=== PATIENT | female | born 1940 | race Caucasian/White ===

== ENCOUNTER 2021-04-09 17:21 | Inpatient (IN) | payer MEDICARE, MEDICAID ==
[2021-04-09 19:00] LABS: #Monocytes 0.3 10x3/uL (0.0-1.1); #Neutrophils 2.3 10x3/uL (1.5-8.4); %Basophils 0.3 % (0.0-2.0); %Monocytes 8.5 % (0.0-10.0); %Neutrophils 73.9 % (40.0-75.0); Hemoglobin 10.3 g/dL (12.0-15.5); Mean Corpuscular HGB CONC 31.5 g/dL (32.0-36.0); Mean Corpuscular Hemoglobin 28.1 pg (27.0-33.0); Mean Corpuscular Volume 89.1 fl (81.6-98.3); Mean Platelet Volume 10.4 fl (7.4-10.4); Platelet Count 125 10x3/uL (150-450); RBC Distribution Width 15.8 % (11.5-14.5); Red Blood Cell (RBC) Count 3.67 10x6/uL (3.90-5.03); White Blood Cell (WBC) Count 3.1 10x3/uL (3.5-10.5)
[2021-04-09 19:09] LABS: ALT (SGPT) 7 U/L (8-55); AST (SGOT) 24 U/L (5-34); Albumin 4.2 g/dL (3.4-4.8); Alkaline Phosphatase 49 U/L (40-110); Anion Gap 20 mmol/L (10-20); BUN (Urea Nitrogen) 77 mg/dL (9.8-20.1); Calc. Creatinine Clearance 0 mL/min (70-130); Calcium 8.3 mg/dL (7.8-10.44); Carbon Dioxide 27 mmol/L (23-31); Chloride 95 mmol/L (98-107); Globulin 2.7 g/dL (2.4-3.5); Glucose 85 mg/dL (83-110); Potassium 4.2 mmol/L (3.5-5.1); Protein, Total 6.9 g/dL (5.8-8.1); Sodium 138 mmol/L (136-145)
[2021-04-09] MEDS ORDERED: Ondansetron PF 4 MG/2 ML Vial ONE (20:03)
[2021-04-09 21:23] LABS: SARS-CoV-2 NAA Rapid Test DETECTED (NotDetected)
[2021-04-09 21:25] LABS: CKMB 3.4 ng/mL (0-6.6)
[2021-04-09] MEDS ORDERED: Senokot S 8.6-50 MG TAB PO PRN (22:47)
[2021-04-09] MEDS ORDERED: Ondansetron ODT 4 MG TAB PO PRN (22:47)
[2021-04-09 23:11] LABS: Magnesium 2.1 mg/dL (1.6-2.6)
[2021-04-09 23:29] LABS: Troponin I 0.157 ng/mL (< 0.028)
[2021-04-10 04:42] LABS: #Monocytes 0.3 10x3/uL (0.0-1.1); #Neutrophils 2.3 10x3/uL (1.5-8.4); %Basophils 0.3 % (0.0-2.0); %Lymphocytes 16.6 % (18.0-47.0); %Neutrophils 73.5 % (40.0-75.0); Mean Corpuscular HGB CONC 31.7 g/dL (32.0-36.0); Mean Corpuscular Hemoglobin 28.3 pg (27.0-33.0); Mean Corpuscular Volume 89.2 fl (81.6-98.3); Mean Platelet Volume 10.4 fl (7.4-10.4); Platelet Count 120 10x3/uL (150-450); Red Blood Cell (RBC) Count 3.53 10x6/uL (3.90-5.03); White Blood Cell (WBC) Count 3.1 10x3/uL (3.5-10.5)
[2021-04-10 04:53] LABS: Anion Gap 19 mmol/L (10-20); BUN (Urea Nitrogen) 80 mg/dL (9.8-20.1); Calc. Creatinine Clearance 0 mL/min (70-130); Calcium 7.9 mg/dL (7.8-10.44); Carbon Dioxide 23 mmol/L (23-31); Chloride 97 mmol/L (98-107); Glucose 96 mg/dL (83-110); Potassium 4.1 mmol/L (3.5-5.1); Sodium 135 mmol/L (136-145)
[2021-04-10] MEDS ORDERED: Dexamethasone 4 mg/ml Vial SLOW IVP SCH (05:00)
[2021-04-10] MEDS ORDERED: Dexamethasone 10 MG/ML VIAL ONE (05:14)
[2021-04-10 05:16] LABS: Troponin I 0.166 ng/mL (< 0.028)
[2021-04-10 10:04] VITALS: BMI 32.8
[2021-04-10] MEDS ORDERED: Heparin 10,000 UNITS/ 10 ML VIAL SLOW IVP PRN (10:47)
[2021-04-10] MEDS ORDERED: EPOETIN ALFA-EPBX (ESRD) 3,000 UNIT/ML VIAL IVP PRN (10:50)
[2021-04-10] MEDS ORDERED: Flecainide 50 MG TAB PO SCH (11:00)
[2021-04-10] MEDS ORDERED: Dexamethasone 20 MG/5 ML VIAL ONE (11:07)
[2021-04-10] MEDS ORDERED: Heparin 5,000 UNITS/ML VIAL ONE (11:08)
[2021-04-10] MEDS: Dexamethasone 4 mg/ml Vial SLOW IVP SCH (11:17)
[2021-04-10] MEDS: Heparin 5,000 UNITS/ML VIAL SC SCH ×2 (12:28→23:45)
[2021-04-10 13:20] LABS: Free T4 (Free Thyroxine) Less than 0.40 ng/dL (0.70-1.48)
[2021-04-10] MEDS ORDERED: Levothyroxine Sodium 100 MCG TAB PO SCH (16:30)
[2021-04-10] MEDS: Flecainide 50 MG TAB PO SCH (23:45)
[2021-04-11 05:32] LABS: ALT (SGPT) 9 U/L (8-55); AST (SGOT) 27 U/L (5-34); Albumin 3.9 g/dL (3.4-4.8); Alkaline Phosphatase 47 U/L (40-110); Anion Gap 19 mmol/L (10-20); BUN (Urea Nitrogen) 44 mg/dL (9.8-20.1); Bilirubin, Total 0.8 mg/dL (0.2-1.2); CRP (Inflammatory) 2.72 mg/dL (= or < 0.5); Calc. Creatinine Clearance 13 mL/min (70-130); Calcium 8.6 mg/dL (7.8-10.44); Carbon Dioxide 28 mmol/L (23-31); Chloride 97 mmol/L (98-107); Globulin 2.6 g/dL (2.4-3.5); Glucose 122 mg/dL (83-110); Potassium 3.9 mmol/L (3.5-5.1); Protein, Total 6.5 g/dL (5.8-8.1); Sodium 140 mmol/L (136-145)
[2021-04-11 05:46] LABS: #Monocytes 0.3 10x3/uL (0.0-1.1); #Neutrophils 3.6 10x3/uL (1.5-8.4); %Basophils 0.2 % (0.0-2.0); %Lymphocytes 10.4 % (18.0-47.0); %Monocytes 7.7 % (0.0-10.0); %Neutrophils 80.3 % (40.0-75.0); Mean Corpuscular HGB CONC 31.4 g/dL (32.0-36.0); Mean Corpuscular Volume 89.1 fl (81.6-98.3); Mean Platelet Volume 10.6 fl (7.4-10.4); Platelet Count 128 10x3/uL (150-450); RBC Distribution Width 15.6 % (11.5-14.5); Red Blood Cell (RBC) Count 3.57 10x6/uL (3.90-5.03); White Blood Cell (WBC) Count 4.4 10x3/uL (3.5-10.5)
[2021-04-11] MEDS: Heparin 5,000 UNITS/ML VIAL SC SCH ×4 (08:29→21:59)
[2021-04-11] MEDS: Dexamethasone 4 mg/ml Vial SLOW IVP SCH ×2 (11:15→21:59)
[2021-04-11] MEDS: Flecainide 50 MG TAB PO SCH ×2 (11:15→21:59)
[2021-04-11] MEDS ORDERED: Ipratropium Oral Inhaler INH PRN (17:20)
[2021-04-11] MEDS: Ventolin HFA Inhaler 60 PUFF INHALER INH SCH (23:50)
[2021-04-12] MEDS: Ventolin HFA Inhaler 60 PUFF INHALER INH SCH ×7 (00:13→23:46)
[2021-04-12 04:35] LABS: #Monocytes 0.2 10x3/uL (0.0-1.1); #Neutrophils 4.9 10x3/uL (1.5-8.4); %Basophils 0.2 % (0.0-2.0); %Lymphocytes 6.6 % (18.0-47.0); %Monocytes 3.8 % (0.0-10.0); %Neutrophils 88.5 % (40.0-75.0); Hemoglobin 9.9 g/dL (12.0-15.5); Mean Corpuscular HGB CONC 31.2 g/dL (32.0-36.0); Mean Corpuscular Hemoglobin 27.8 pg (27.0-33.0); Mean Platelet Volume 10.3 fl (7.4-10.4); Platelet Count 149 10x3/uL (150-450); RBC Distribution Width 15.7 % (11.5-14.5); Red Blood Cell (RBC) Count 3.56 10x6/uL (3.90-5.03); White Blood Cell (WBC) Count 5.5 10x3/uL (3.5-10.5)
[2021-04-12 05:02] LABS: Anion Gap 20 mmol/L (10-20); BUN (Urea Nitrogen) 60 mg/dL (9.8-20.1); CRP (Inflammatory) 3.04 mg/dL (= or < 0.5); Calc. Creatinine Clearance 10 mL/min (70-130); Calcium 8.4 mg/dL (7.8-10.44); Carbon Dioxide 26 mmol/L (23-31); Chloride 96 mmol/L (98-107); Glucose 104 mg/dL (83-110); Potassium 4.4 mmol/L (3.5-5.1); Sodium 138 mmol/L (136-145)
[2021-04-12] MEDS ORDERED: Levothyroxine Sodium 25 MCG TAB PO SCH (08:45)
[2021-04-12] MEDS: Heparin 5,000 UNITS/ML VIAL SC SCH ×3 (15:37→21:07)
[2021-04-12] MEDS: Flecainide 50 MG TAB PO SCH ×2 (15:39→21:07)
[2021-04-12] MEDS: Dexamethasone 4 mg/ml Vial SLOW IVP SCH ×2 (15:41→21:07)
[2021-04-13] MEDS: Ventolin HFA Inhaler 60 PUFF INHALER INH SCH ×5 (03:00→23:20)
[2021-04-13] MEDS: Levothyroxine Sodium 25 MCG TAB PO SCH (05:22)
[2021-04-13 05:23] LABS: #Monocytes 0.3 10x3/uL (0.0-1.1); %Basophils 0.1 % (0.0-2.0); %Monocytes 4.1 % (0.0-10.0); %Neutrophils 87.8 % (40.0-75.0); Hemoglobin 10.1 g/dL (12.0-15.5); Mean Corpuscular HGB CONC 30.8 g/dL (32.0-36.0); Mean Corpuscular Hemoglobin 27.8 pg (27.0-33.0); Mean Corpuscular Volume 90.4 fl (81.6-98.3); Mean Platelet Volume 10.6 fl (7.4-10.4); Platelet Count 181 10x3/uL (150-450); RBC Distribution Width 15.5 % (11.5-14.5); Red Blood Cell (RBC) Count 3.63 10x6/uL (3.90-5.03); White Blood Cell (WBC) Count 6.9 10x3/uL (3.5-10.5)
[2021-04-13 05:25] LABS: ALT (SGPT) 17 U/L (8-55); AST (SGOT) 34 U/L (5-34); Albumin 4.1 g/dL (3.4-4.8); Alkaline Phosphatase 70 U/L (40-110); Anion Gap 17 mmol/L (10-20); Bilirubin, Total 0.8 mg/dL (0.2-1.2); Calc. Creatinine Clearance 13 mL/min (70-130); Calcium 8.7 mg/dL (7.8-10.44); Carbon Dioxide 29 mmol/L (23-31); Chloride 94 mmol/L (98-107); Globulin 2.7 g/dL (2.4-3.5); Glucose 111 mg/dL (83-110); Potassium 4.2 mmol/L (3.5-5.1); Protein, Total 6.8 g/dL (5.8-8.1); Sodium 136 mmol/L (136-145)
[2021-04-13 05:38] LABS: BUN (Urea Nitrogen) 40 mg/dL (9.8-20.1)
[2021-04-13] MEDS: Dexamethasone 4 mg/ml Vial SLOW IVP SCH ×2 (08:24→21:12)
[2021-04-13] MEDS: Heparin 5,000 UNITS/ML VIAL SC SCH ×3 (08:25→21:12)
[2021-04-13] MEDS: Flecainide 50 MG TAB PO SCH ×2 (08:27→21:12)
[2021-04-13] MEDS: Ondansetron PF 4 MG/2 ML Vial IVP PRN (08:27)
[2021-04-14] MEDS: Ventolin HFA Inhaler 60 PUFF INHALER INH SCH ×6 (03:36→23:57)
[2021-04-14 04:29] LABS: Anion Gap 23 mmol/L (10-20); BUN (Urea Nitrogen) 59 mg/dL (9.8-20.1); Calc. Creatinine Clearance 11 mL/min (70-130); Calcium 8.2 mg/dL (7.8-10.44); Carbon Dioxide 25 mmol/L (23-31); Chloride 94 mmol/L (98-107); Glucose 119 mg/dL (83-110); Potassium 4.5 mmol/L (3.5-5.1); Sodium 137 mmol/L (136-145)
[2021-04-14] MEDS: Levothyroxine Sodium 25 MCG TAB PO SCH (05:36)
[2021-04-14] MEDS: Flecainide 50 MG TAB PO SCH ×2 (08:57→20:18)
[2021-04-14] MEDS: Dexamethasone 4 mg/ml Vial SLOW IVP SCH (08:57)
[2021-04-14] MEDS: Heparin 5,000 UNITS/ML VIAL SC SCH ×3 (08:57→20:18)
[2021-04-14] MEDS ORDERED: Guaifenesin DM 100-10/5 ML UDCUP PO PRN (09:18)
[2021-04-14] MEDS: Benzonatate 100 MG CAP PO SCH ×2 (16:46→20:18)
[2021-04-15] MEDS: Ventolin HFA Inhaler 60 PUFF INHALER INH SCH ×6 (04:12→23:00)
[2021-04-15] MEDS: Levothyroxine Sodium 25 MCG TAB PO SCH (06:25)
[2021-04-15] MEDS: Dexamethasone 4 MG TAB PO SCH (09:01)
[2021-04-15] MEDS: Flecainide 50 MG TAB PO SCH ×2 (09:01→21:07)
[2021-04-15] MEDS: Benzonatate 100 MG CAP PO SCH ×3 (09:02→21:07)
[2021-04-15] MEDS: Heparin 5,000 UNITS/ML VIAL SC SCH ×3 (09:02→21:08)
[2021-04-15] MEDS ORDERED: Sodium Chloride 0.9% 250 ML IV SCH (21:00)
[2021-04-16] MEDS: Ventolin HFA Inhaler 60 PUFF INHALER INH SCH ×6 (03:08→23:00)
[2021-04-16] MEDS: Levothyroxine Sodium 25 MCG TAB PO SCH (05:42)
[2021-04-16] MEDS ORDERED: Cefepime 1 GM in Sodium Chloride 0.9% 100 ML IVPB SCH (09:00)
[2021-04-16] MEDS: Heparin 5,000 UNITS/ML VIAL SC SCH ×3 (09:15→21:55)
[2021-04-16] MEDS: Dexamethasone 4 MG TAB PO SCH (09:15)
[2021-04-16] MEDS: Benzonatate 100 MG CAP PO SCH ×3 (09:15→21:55)
[2021-04-16] MEDS: Flecainide 50 MG TAB PO SCH ×2 (09:15→21:55)
[2021-04-16] MEDS: Ondansetron PF 4 MG/2 ML Vial IVP PRN (09:24)
[2021-04-16 09:38] LABS: Anion Gap 17 mmol/L (10-20); BUN (Urea Nitrogen) 54 mg/dL (9.8-20.1); CRP (Inflammatory) 1.31 mg/dL (= or < 0.5); Calc. Creatinine Clearance 11 mL/min (70-130); Carbon Dioxide 28 mmol/L (23-31); Chloride 96 mmol/L (98-107); Glucose 79 mg/dL (83-110); Sodium 136 mmol/L (136-145)
[2021-04-16 09:39] LABS: #Monocytes 0.8 10x3/uL (0.0-1.1); #Neutrophils 6.8 10x3/uL (1.5-8.4); %Basophils 0.4 % (0.0-2.0); %Monocytes 9.3 % (0.0-10.0); %Neutrophils 75.1 % (40.0-75.0); Hemoglobin 11.3 g/dL (12.0-15.5); Mean Corpuscular Volume 90.3 fl (81.6-98.3); Mean Platelet Volume 9.5 fl (7.4-10.4); Platelet Count 196 10x3/uL (150-450); RBC Distribution Width 16.5 % (11.5-14.5); Red Blood Cell (RBC) Count 4.04 10x6/uL (3.90-5.03)
[2021-04-16] MEDS: Metoclopramide HCl 10 MG/2 ML VIAL IVP PRN (14:55)
[2021-04-17 04:08] LABS: Hemoglobin 11.4 g/dL (12.0-15.5); Mean Corpuscular HGB CONC 30.8 g/dL (32.0-36.0); Mean Corpuscular Hemoglobin 27.9 pg (27.0-33.0); Mean Corpuscular Volume 90.5 fl (81.6-98.3); Platelet Count 218 10x3/uL (150-450); RBC Distribution Width 16.9 % (11.5-14.5); Red Blood Cell (RBC) Count 4.09 10x6/uL (3.90-5.03); White Blood Cell (WBC) Count 9.2 10x3/uL (3.5-10.5)
[2021-04-17 04:21] LABS: Anion Gap 20 mmol/L (10-20); BUN (Urea Nitrogen) 66 mg/dL (9.8-20.1); Calc. Creatinine Clearance 9 mL/min (70-130); Carbon Dioxide 25 mmol/L (23-31); Chloride 97 mmol/L (98-107); Glucose 93 mg/dL (83-110); Potassium 5.2 mmol/L (3.5-5.1); Sodium 137 mmol/L (136-145)
[2021-04-17] MEDS: Ventolin HFA Inhaler 60 PUFF INHALER INH SCH ×6 (04:43→23:56)
[2021-04-17] MEDS: Levothyroxine Sodium 25 MCG TAB PO SCH (05:05)
[2021-04-17 05:30] LABS: MDiff Complete? YES
[2021-04-17 05:32] LABS: Band 2 % (5-11); Lymphocytes 12 % (21-51); Metamyelocyte 1 % (0-0); Monocytes 3 % (0-10); Neutrophil 81 % (42-75); Platelet Morphology Comment Appears Adequate; Polychromasia SLIGHT = 2-3 cells (100X) (0-2/hpf); Reactive Lymphocytes 1 % (0-10)
[2021-04-17] MEDS: Metoclopramide HCl 10 MG/2 ML VIAL IVP PRN (09:22)
[2021-04-17] MEDS: Dexamethasone 4 MG TAB PO SCH (14:11)
[2021-04-17] MEDS: Benzonatate 100 MG CAP PO SCH ×3 (14:11→20:01)
[2021-04-17] MEDS: Flecainide 50 MG TAB PO SCH ×2 (14:12→20:00)
[2021-04-17] MEDS: Cefepime 1 GM in Sodium Chloride 0.9% 100 ML IVPB SCH (14:12)
[2021-04-17] MEDS: Heparin 5,000 UNITS/ML VIAL SC SCH ×3 (14:13→20:00)
[2021-04-18] MEDS: Ventolin HFA Inhaler 60 PUFF INHALER INH SCH ×4 (03:38→15:11)
[2021-04-18 05:19] LABS: Mean Corpuscular HGB CONC 30.3 g/dL (32.0-36.0); Mean Corpuscular Hemoglobin 27.9 pg (27.0-33.0); Mean Corpuscular Volume 92.1 fl (81.6-98.3); Mean Platelet Volume 9.9 fl (7.4-10.4); Platelet Count 184 10x3/uL (150-450); RBC Distribution Width 17.2 % (11.5-14.5); White Blood Cell (WBC) Count 10.9 10x3/uL (3.5-10.5)
[2021-04-18 05:29] LABS: Anion Gap 20 mmol/L (10-20); BUN (Urea Nitrogen) 42 mg/dL (9.8-20.1); CRP (Inflammatory) 1.11 mg/dL (= or < 0.5); Calc. Creatinine Clearance 12 mL/min (70-130); Calcium 8.3 mg/dL (7.8-10.44); Carbon Dioxide 25 mmol/L (23-31); Chloride 98 mmol/L (98-107); Glucose 89 mg/dL (83-110); Potassium 4.4 mmol/L (3.5-5.1); Sodium 139 mmol/L (136-145)
[2021-04-18] MEDS: Levothyroxine Sodium 25 MCG TAB PO SCH ×2 (05:40→06:45)
[2021-04-18 06:27] LABS: Lymphocytes 4 % (21-51); Monocytes 7 % (0-10); Nucleated RBC 1 % (0); Platelet Morphology Comment Appears Adequate; Reactive Lymphocytes 3 % (0-10)
[2021-04-18 06:28] LABS: Anisocytosis SLIGHT = 6-15 cells (100X) (0-5/hpf); Hypochromia SLIGHT = 6-15 cells (100X) (0-5/hpf); Polychromasia SLIGHT = 2-3 cells (100X) (0-2/hpf)
[2021-04-18 06:29] LABS: Elliptocytes SLIGHT = 2-5 cells (100X) (0-1/hpf)
[2021-04-18 07:00] LABS: MDiff Complete? YES; Manual Diff?? YES; Neutrophil 86 % (42-75)
[2021-04-18] MEDS: Dexamethasone 4 MG TAB PO SCH (08:14)
[2021-04-18] MEDS: Flecainide 50 MG TAB PO SCH (08:15)
[2021-04-18] MEDS: Cefepime 1 GM in Sodium Chloride 0.9% 100 ML IVPB SCH (08:15)
[2021-04-18] MEDS: Heparin 5,000 UNITS/ML VIAL SC SCH (08:15)
[2021-04-18] MEDS: Benzonatate 100 MG CAP PO SCH (08:15)
[2021-04-18 13:06] VITALS: BP 118/65; TEMP 98.3
== END 2021-04-18 14:38 | disposition expired | DRG 177 ==
LOC: CSHERS 17:21 → CSHERHOLD 22:47 → UNDOADMOB 04-10 04:55 → INTOOBSV 04-10 04:55 → OBSVTOIN 04-10 16:07 → CSHTELE 04-10 21:43
PROVIDERS: ADMIT Family Medicine; ATTEND Hospitalist
PROC: 8E0ZXY6 Isolation (ICD-10-PCS; principal; 2021-04-10)
PROC: 5A1D70Z Performance of Urinary Filtration, Intermittent, Less than 6 Hours Per Day (ICD-10-PCS; 2021-04-17)
PROC: 5A12012 Performance of Cardiac Output, Single, Manual (ICD-10-PCS; 2021-04-18)
DX: U07.1 COVID-19 (principal); J12.82 Pneumonia due to coronavirus disease 2019; J96.01 Acute respiratory failure with hypoxia; N18.6 End stage renal disease; I50.31 Acute diastolic (congestive) heart failure; I13.2 Hypertensive heart and chronic kidney disease with heart failure and with stage 5 chronic kidney disease, or end stage renal disease; I27.0 Primary pulmonary hypertension; D63.1 Anemia in chronic kidney disease; I48.0 Paroxysmal atrial fibrillation; E78.2 Mixed hyperlipidemia; I35.2 Nonrheumatic aortic (valve) stenosis with insufficiency; Z96.653 Presence of artificial knee joint, bilateral; E03.9 Hypothyroidism, unspecified; I95.89 Other hypotension; I25.10 Atherosclerotic heart disease of native coronary artery without angina pectoris; Z99.2 Dependence on renal dialysis; Z95.1 Presence of aortocoronary bypass graft; Z95.3 Presence of xenogenic heart valve; Z90.49 Acquired absence of other specified parts of digestive tract; Z90.710 Acquired absence of both cervix and uterus; Z90.89 Acquired absence of other organs; Z91.15 Patient's noncompliance with renal dialysis
CPT/HCPCS: 0240U; 36415; 71045; 80048; 80053; 82553; 83605; 83735; 84145; 84439; 84443; 84481; 84484; 85025; 85379; 86140; 90935; 93005; 93010; 93306; 94760; 96374; 96375; 96376; G0257; G0378; J0692; J1100; J1644; J2405; J2765; J3490; J7030; J8540; Q5105